=== PATIENT | female | born 1990 | race African-American/Black ===

== ENCOUNTER → 2018-10-26 | Outpatient (CLI) | payer MEDICAID ==
[~2018-10-26] MED LIST: CEFTIN250 M1 PO; CEPHALEXIN500 M1 PO; DEPO-PROVER150 MG/M1 IM; FLAGYL PO; FLEXERIL 1010 MG/TAB PO; LEXAPRO 10MG10 MG PO; LEXAPRO20 MG PO; LO/OVRAL1 TAB PO; MACROBID 1100 MG/CAP PO; METRONIDAZOLE500 MG PO; MOTRIN 600600 MG/TAB PO; MOTRIN 800800 MG/TAB PO; NAPROSYN500 MG; NAPROSYN500 MG PO; NAPROXEN500 MG PO; NO HOME MEDICATIONS; NORCO 325 MG-51 TAB; NORCO 325 MG-51 TAB PO; PERCOCET 325 MG1 TA2 PO; PERCOCET 500 MG1 TAB PO; PERCOCET 650 MG1 TAB PO; PHENERGAN 25 TA25 MG PO; PREDNISONE1 MG; PRENATAL VITAMI1 TA5 PO; PRENATAL1 TA1 PO; PYRIDIUM200 M1 PO; ROBAXIN 50500 MG/TAB PO; SLOW FE45 MG PO; ZITHROMAX500 M2 PO
== END ==
LOC: COL.RAD 13:15
DX: M79.673 Pain in unspecified foot (principal)

== ENCOUNTER 2019-08-30 08:43 | Outpatient (RCR) | payer OTHER ==
[2019-09-08] MEDS ORDERED: IBU800 M1 PO (08:17)
[2019-09-08] MEDS ORDERED: FERROUS SU325 MG/TAB PO (08:17)
[2019-09-08] MEDS ORDERED: PERCOCET 325 MG1 TA2 PO (08:17)
[2019-11-20] MEDS ORDERED: NORCO 325 MG-51 TAB PO (21:11)
[2019-11-20] MEDS ORDERED: CLEOCIN HC150 MG/CAP PO (21:11)
[2019-11-20] MEDS ORDERED: LEXAPRO 5MG5 MG PO (21:53)
== END 2019-11-28 ==
LOC: WSC
DX: Z02.71 Encounter for disability determination (principal)

== ENCOUNTER 2019-09-06 18:33 | Inpatient (IN) | payer MEDICAID ==
[~2019-09-06] VITALS: Wt 74.1 kg
[2019-09-06] VITALS (21 sets, daily range): BP systolic 103–137; BP diastolic 53–85; PULSE 52–86; TEMP 97.7–98.1
[2019-09-06 19:40] LABS: BASO % 0.5 % (0.0-2.0); EOS # 0.1 (0.0-0.7); EOS % 1.5 % (0-4.0); GRAN # 4.1 (1.4-6.5); GRAN % 61.5 % (42.2-75.2); HEMATOCRIT 29.6 % (37.0-47.0); HEMOGLOBIN 9.8 g/dl (12.5-16.0); LYMPH % 29.6 % (20.0-51.0); MEAN CELL VOLUME 96 fl (80.0-100.0); MEAN CORPUSCULAR HEMOGLOBIN 32 pg (27.0-31.0); MEAN CORPUSCULAR HGB CONC 33 g/dl (33.0-37.0); MEAN PLATELET VOLUME 11.6 fl (7.4-10.4); MONO # 0.4 (0.1-0.6); MONO % 6.6 % (1.7-9.3); PLATELET COUNT 156 K/mm3 (130-400); RED BLOOD COUNT 3.09 M/mm3 (4.10-5.30)
--- NOTE | 2019-09-06 20:00 | NUR ---
183- Patient ambulatory to [facility] with mother. Patient and family oriented to room. Patient into restroom to void and change into gown. 1830- EFM and TOCO on and tracing. Patient has complaints of contractions every 10-15 minutes since 1600 and vaginal pressure. Patient denies leaking of fluid, bleeding, or spotting. SVE /-2. 184- See Physician Notification. 1899- IV started. LR and Pen G #1 infusing per protocol. Labs drawn and sent to lab. UA need explained to patient. 1934- Patient is requesting an epidural. AISHA Valadez at bedside. Patient repositioned to sitting upright for epidural placement. EFM and TOCO on and tracing intermittently due to maternal position. 1958- See Anesthesia Record. 2014- SVE /-2. See Physician Notification. 2029- Kitchen catheter placed. UA collected and sent.
[2019-09-06 21:32] LABS: TRICYCLIC ANTIDEPRESS URINE NEGATIVE
[2019-09-07] VITALS (11 sets, daily range): BP systolic 96–122; BP diastolic 47–73; PULSE 47–61; TEMP 97.5–98
--- NOTE | 2019-09-07 | NUR ---
2100- at bedside. AROM. Large amount of clear, odorless fluid noted. SVE 5/80/-2 by . 5- SVE 5-6/80/-2 by this RN. 2220- Deceleration noted on FHT strip. RN to bedside. Deceleration lasts 3 minutes before recovering to baseline. FHR audibly 120s while at bedside during decel. Patient states "I moved the monitors because I was itchy." 2230- See Physician Notification. 223- Pitocin infusing per protocol. 2300- at bedside. SVE 6-7/80/-1. 2305- Deceleration noted on FHT strip. MD and member of parliament, Satish, to bedside. Patient repositioned RL. Pitocin turned off. O2 applied. Patient repositioned LL. SVE 790/-1 by . FSE placed by MD. LR bolus infusing. Deceleration lasted 13 minutes before recovering to baseline. 2330- MD remains on L&D unit. Recurrent early decelerations noted. 2340- SVE 9/0 by . 2345- Patient calls out "I need to push!" MD and RN to bedside. SVE Complete/+1. Room prepared for delivery. Nursery RN, Lulú, notified. Kitchen catheter removed. 2350- Patient begins pushing with contractions. 235- of viable baby boy. Cord clamped and cut by . Cord blood obtained. 235- Spontaneous delivery of intact placenta. Pitocin infusing at 333 ml/hr per protocol. Fundus massaged to firm by . Perineum intact. Pericare provided. Ice pack applied. 0000- PP Recovery.
--- NOTE | 2019-09-07 10:35 | NUR ---
Initial visit; Parent thanked for offering congratulations for the of her son. [employer] thanked family for choosing [facility].
--- NOTE | 2019-09-07 14:07 | NUR ---
PADMAJA martinez responded to a consult for the patient due to a current opioid abuse, UDS+ (THC 08/15) Opiates (09/06), minimal care, increased anxiety and drepression and no car seat. PADMAJA martinez met with the patient. The patient reports she is not involved with the babies father. The patient reports he is out of town for work but will visit the baby once he returns next week. The patient has four other children age 11,9,6 and 5. The nine year old lives with her dad. The father of the 6 and 5 year old is present and helping raise them. The patient reports demographics are correct except phone number, new number . The patient reports she is unemployed and on disablity. The patient receives WIC and SNAP benefits. PADMAJA martinez provided [facility] Resource Guide and mental health resource page. The patient reports she has had some depression. The patient reports she used to see someone at [place] but no longer goes. The patient reports that Dr. Castillo is her PCP. Patient has had one visit with him on 10/26/18 and she was referred to an ENT and he gave no opiod script. PADMAJA martinez addressed the postive opiod test. The patient reports Dr. Huang gave her prescriptions because of her scoliosis a long time ago. PADMAJA martinez contacted Dr. Huang's office . Dr. Huang's office reports the last appointment for the patient was 10/18/19 and they also report Dr. Huang would no longer see the patient due to "somethings the patient was doing." PADMAJA martinez contacted [facility] to inquire about a car seat and left a message. PADMAJA martinez awaiting response. PADMAJA martinez collaborated the above information with the patient's nurse and doctor.
[2019-09-08 08:15] VITALS: BP 117/76; PULSE 59; TEMP 97.6
--- NOTE | 2019-09-08 08:15 | NUR ---
Sits up in bed, alert. Eating breakfast. Baby to nursery for assessment.
[2019-09-08] MEDS ORDERED: IBU800 M1 PO (08:17)
[2019-09-08] MEDS ORDERED: FERROUS SU325 MG/TAB PO (08:17)
[2019-09-08] MEDS ORDERED: PERCOCET 325 MG1 TA2 PO (08:17)
--- NOTE | 2019-09-08 10:15 | NUR ---
1018 Percocet 5/325 mg two given per request and as ordered.
== END 2019-09-08 12:00 | disposition home or self-care (01) | DRG 807 ==
LOC: LDRO 18:33 → LDR 18:34 → LDRO 19:37 → OB 19:38 → LDR 19:38 → OB 09-07 04:00
PROVIDERS: Student in an Organized Health Care Education/Training Program; ADMIT Obstetrics & Gynecology
PROC: 10E0XZZ Delivery of Products of Conception, External Approach (ICD-10-PCS; principal; 2019-09-07)
PROC: 10907ZC Drainage of Amniotic Fluid, Therapeutic from Products of Conception, Via Natural or Artificial Opening (ICD-10-PCS; 2019-09-07)
DX: O99.824 Streptococcus B carrier state complicating childbirth (principal); Z37.0 Single live birth; O99.344 Other mental disorders complicating childbirth; O99.02 Anemia complicating childbirth; D64.9 Anemia, unspecified; Z3A.37 37 weeks gestation of pregnancy; M41.9 Scoliosis, unspecified; O75.89 Other specified complications of labor and delivery; F41.9 Anxiety disorder, unspecified; F32.9 Major depressive disorder, single episode, unspecified; O76 Abnormality in fetal heart rate and rhythm complicating labor and delivery; O69.81X0 Labor and delivery complicated by cord around neck, without compression, not applicable or unspecified; O69.89X0 Labor and delivery complicated by other cord complications, not applicable or unspecified; Z23 Encounter for immunization
CPT/HCPCS: J2540; J2590; J7120

== ENCOUNTER 2019-11-20 18:00 | Emergency (ER) | payer MEDICAID ==
[~2019-11-20] VITALS: Ht 172.7 cm; Wt 64.5 kg
[~2019-11-20 18:00] MED LIST changes: +FERROUS SU325 MG/TAB PO; +IBU800 M1 PO
[2019-11-20] MEDS ORDERED: NORCO 325 MG-51 TAB PO (21:11)
[2019-11-20] MEDS ORDERED: CLEOCIN HC150 MG/CAP PO (21:11)
[2019-11-20 21:27] VITALS: BP 116/87; PULSE 63; TEMP 98.3
[2019-11-20] MEDS ORDERED: LEXAPRO 5MG5 MG PO (21:53)
== END 2019-11-20 21:27 | disposition home or self-care (01) ==
LOC: COL.ER 18:00
DX: Q89.2 Congenital malformations of other endocrine glands (principal)

== ENCOUNTER → 2020-06-01 | Outpatient (CLI) | payer MEDICAID ==
[~2020-06-01] VITALS: Ht 175.3 cm; Wt 70.5 kg
[~2020-06-01] MED LIST changes: +CLEOCIN HC150 MG/CAP PO; +LEXAPRO 5MG5 MG PO
--- NOTE | 2020-06-01 21:05 | NUR ---
2104- PT PRESENTS TO LDR COMPLAINING OF CONTRACTIONS AND VAGINAL BLEEDING, AMBULATORY TO ROOM LR5, CHANGED INTO GOWN. 2112- EFM X2 APPLIED. PT DENIES LEAKING FLUID, STATES VAGINAL BLEEDING IS LIKE SPOTTING AND STARTED TONIGHT WHILE SHE WAS AT WORK. SHE IS FEELING BABY MOVE AND HAS BEEN HAVING SOME CONTRACTIONS SINCE YESTERDAY. PLAN OF CARE FOR LABOR CHECK DISCUSSED. COVID SCREENING NEGATIVE. 2124- SVE BY THIS NURSE 3-3 WITH DARK BLOOD ON GLOVE AFTER EXAM. PT QUESTIONS ANSWERED ABOUT ADVANCED DILATION FOR GESTATIONAL AGE AND CALLING DR FOR LABOR. 2130- DR DUNCAN CALLED AND UPDATED ON PT HISTORY, COMPLAINT, STRIP, SVE, AND BLEEDING. ORDERS RECIEVED FOR FLUIDS, MEDS, AND WATCH FOR 2 HOURS. 2132- DR DUNCAN CALLS BACK AND STATES SHE HAS DECIDED TO TRANSFER PT AND TO PREPARE FOR TRANSPORT. SHE WILL BE IN TO SEE PT. 2134- PT UPDATED ON PLAN OF CARE FOR MEDICATIONS HERE AND TRANSPORT TO [place]. QUESTIONS ANSWERED AND PT NOTIFIED THAT DR DUNCAN WILL COME TO BEDSIDE FOR EVALUATION. 2139- IV START TO LEFT WRIST, LR INFUSING. 2144- TERB INJECTION IN RIGHT ARM. 2146- AMP 2 GM INFUSING. 2149- BETAMETHASONE 12MG INJECTION TO RIGHT BUTTOCK. 2154- DR DUNCAN AT DESK, REVIEWS STRIP AND RECORD. 2158- DR DUNCAN AT BEDSIDE. DISCUSSES PLAN OF CARE INCLUDING RISKS AND BENEFITS OF TRANSFER. QUESTIONS ANSWERED. PT AGREES TO TRANSFER. SVE BY DR DUNCAN 2. 2207- BEDSIDE SONO USED FOR VERIFYING VERTEX POSITION OF BABY. DR DUNCAN ON PHONE WITH [facility] DOCTOR. 2209- PT UP TO BATHROOM.
[2020-06-01 21:30] VITALS: BP 117/75; PULSE 82; TEMP 98.3
--- NOTE | 2020-06-01 22:40 | NUR ---
2240- PT UP TO BATHROOM, STATES HER CONTRACTIONS HAVE SPACED OUT. PAPERWORK HAS BEEN SIGNED WITH FACILITY SERVICE ASSOCIATE FOR TRANSPORT. 2255- [facility] LINE EMS TRANSPORT TEAM HERE. PT OFF MONITORS FOR TRANSPORT. REPORT GIVEN TO CECIL BAEZ. PT TRANSFERRED TO CART. 2300- PT OFF UNIT BY EMS TRANSPORT CART TO [facility] LDR. 2305- REPORT CALLED TO [facility] NURSE RUDDY PEARSON.
== END ==
LOC: LDRO 21:22
DX: O46.93 Antepartum hemorrhage, unspecified, third trimester (principal); O62.9 Abnormality of forces of labor, unspecified; Z3A.33 33 weeks gestation of pregnancy
CPT/HCPCS: J0290; J0702; J3105; J7120

== ENCOUNTER 2020-06-04 10:17 | Emergency (ER) | payer MEDICAID ==
[~2020-06-04] VITALS: Ht 175.3 cm; Wt 63.6 kg
[2020-06-04 10:40] VITALS: TEMP 98.1
[2020-06-04] MEDS ORDERED: NORCO 325 MG-51 TAB PO (13:09)
[2020-06-04 13:44] VITALS: BP 118/68; PULSE 63
== END 2020-06-04 13:46 | disposition home or self-care (01) ==
LOC: COL.ER 10:17
DX: O99.89 Other specified diseases and conditions complicating pregnancy, childbirth and the puerperium (principal); R10.2 Pelvic and perineal pain; F17.210 Nicotine dependence, cigarettes, uncomplicated

== ENCOUNTER 2020-11-20 17:22 | Emergency (ER) | payer MEDICAID ==
[~2020-11-20] VITALS: Ht 175.3 cm; Wt 56.8 kg
[2020-11-20 17:39] VITALS: BP 100/65; TEMP 97.5
[2020-11-20 18:55] VITALS: PULSE 85
== END 2020-11-20 18:55 | disposition home or self-care (01) ==
LOC: COL.ER 17:22
DX: S80.12XA Contusion of left lower leg, initial encounter (principal); G89.29 Other chronic pain; F17.200 Nicotine dependence, unspecified, uncomplicated; X58.XXXA Exposure to other specified factors, initial encounter

== ENCOUNTER 2021-01-06 14:07 | Emergency (ER) | payer MEDICAID ==
[~2021-01-06] VITALS: Ht 175.3 cm; Wt 62.3 kg
[2021-01-06 14:23] VITALS: BP 121/78; PULSE 81; TEMP 97.4
== END 2021-01-06 15:09 | disposition left against medical advice (07) ==
LOC: COL.ER 14:07
DX: K08.89 Other specified disorders of teeth and supporting structures (principal)